=== PATIENT | female | born 1980 | race Caucasian/White ===

== ENCOUNTER → 2019-07-31 | Emergency (ER) | payer BC ==
[~2019-07-31] VITALS: Ht 170.2 cm; Wt 90.7 kg
[~2019-07-31] MED LIST: IOPAMIDOL 370 MG/ML 200 ML INFUS..BTL INJ ONE; ONDANSETRON HCL INJ 2MG/ML 2ML 2 MG/ML VIAL IV STA; SODIUM CHLORIDE 0.9% 1000ML 1,000 ML IV STA; SODIUM CHLORIDE 0.9% 50ML 50 ML ONE
--- OUTSIDE RECORDS SUMMARY | 2019-07-31 12:50 | XMS REPORT ---
Author Author Toni Diez Organization [employer] Address Unknown Phone Unavailable Care Team Providers Care Pad Hand Name Role Phone Toni Diez CP Unavailable Allergies No Known Allergies Problems Problem Type Condition Code Onset Dates Condition Status Problem Hypertrophy of tonsils J35.1 Active Medications Medication Code System Code Instructions Start Date End Date Status Dosage Tylenol #3 [facility] [id number] 300-30 MG Orally every 6 hrs as needed Feb 28, 2018 Mar 10, 2018 Active 1-2 tablets Results No Known Results Summary Purpose [employer] Submission
--- OUTSIDE RECORDS SUMMARY | 2019-07-31 12:50 | XMS REPORT ---
Author Author Toni Diez Organization [employer] Address Unknown Phone Unavailable Care Team Providers Care Steamfitter Name Role Phone Toni Diez CP Unavailable Allergies, Adverse Reactions, Alerts Substance Reaction Event Type N.K.D.A. Info Not Available Non Drug Allergy Problems Problem Type Condition Code Onset Dates Condition Status Assessment Hypertrophy of tonsils J35.1 Active Assessment Nasal airway obstruction J34.89 Active Problem Hypertrophy of tonsils J35.1 Active Assessment Deviated nasal septum J34.2 Active Medications No Known Medications Results No Known Results Summary Purpose [employer] Submission
--- OUTSIDE RECORDS SUMMARY | 2019-07-31 12:50 | XMS REPORT ---
Author Author Toni Diez Organization [employer] Address Unknown Phone Unavailable Care Team Providers Care Leather Fitter Name Role Phone Toni Diez CP Unavailable Allergies No Known Allergies Problems Problem Type Condition Code Onset Dates Condition Status Problem Hypertrophy of tonsils J35.1 Active Medications No Known Medications Results No Known Results Summary Purpose [employer] Submission
--- OUTSIDE RECORDS SUMMARY | 2019-07-31 12:51 | XMS REPORT ---
Author Author Toni Diez Organization [employer] Address Unknown Phone Unavailable Care Team Providers Care Lead Enterprise Architect Name Role Phone Toni Diez CP Unavailable Allergies No Known Allergies Problems Problem Type Condition Code Onset Dates Condition Status Problem Hypertrophy of tonsils J35.1 Active Medications No Known Medications Results No Known Results Summary Purpose [employer] Submission
--- OUTSIDE RECORDS SUMMARY | 2019-07-31 12:51 | XMS REPORT ---
Author Author [facility] Address Unknown Phone Unavailable Care Team Providers Care Cold Rolling Coordinator Name Role Phone Trinity PIERSON Unavailable Unavailable Problems This patient has no known problems. Allergies, Adverse Reactions, Alerts This patient has no known allergies or adverse reactions. Medications This patient has no known medications. Results Test Description Test Time Test Comments Text Results Atomic Results Result Comments CBC W/PLT COUNT & AUTO DIFFERENTIAL 2018-02-14 14:45:00 WHITE BLOOD CELL COUNT (BEAKER) (test duok=916) 7.5 K/ L 3.5-10.5 RED BLOOD CELL COUNT (BEAKER) (test nxxw=304) 4.73 M/ L 3.93-5.22 HEMOGLOBIN (BEAKER) (test yudd=478) 10.8 GM/DL 11.2-15.7 HEMATOCRIT (BEAKER) (test wfkj=227) 35.5 % 34.1-44.9 MEAN CORPUSCULAR VOLUME (BEAKER) (test umwn=115) 75.1 fL 79.4-94.8 MEAN CORPUSCULAR HEMOGLOBIN (BEAKER) (test nmee=540) 22.8 pg 25.6-32.2 MEAN CORPUSCULAR HEMOGLOBIN CONC (BEAKER) (test lajg=871) 30.4 GM/DL 32.2-35.5 RED CELL DISTRIBUTION WIDTH (BEAKER) (test iibx=441) 16.0 % 11.7-14.4 PLATELET COUNT (BEAKER) (test clrs=181) 375 K/CU MM 150-450 MEAN PLATELET VOLUME (BEAKER) (test tdwl=228) 9.3 fL 9.4-12.3 NUCLEATED RED BLOOD CELLS (BEAKER) (test gwka=819) 0 /100 WBC 0-0 NEUTROPHILS RELATIVE PERCENT (BEAKER) (test zalv=088) 60 % LYMPHOCYTES RELATIVE PERCENT (BEAKER) (test yjqz=900) 31 % MONOCYTES RELATIVE PERCENT (BEAKER) (test kxdw=966) 6 % EOSINOPHILS RELATIVE PERCENT (BEAKER) (test oqrb=055) 2 % BASOPHILS RELATIVE PERCENT (BEAKER) (test qmaf=453) 1 % NEUTROPHILS ABSOLUTE COUNT (BEAKER) (test abqh=932) 4.51 K/ L 1.56-6.13 LYMPHOCYTES ABSOLUTE COUNT (BEAKER) (test jrfe=799) 2.34 K/ L 1.18-3.74 MONOCYTES ABSOLUTE COUNT (BEAKER) (test jdhs=245) 0.45 K/ L 0.24-0.36 EOSINOPHILS ABSOLUTE COUNT (BEAKER) (test ymms=731) 0.14 K/ L 0.04-0.36 BASOPHILS ABSOLUTE COUNT (BEAKER) (test nlel=408) 0.04 K/ L 0.01-0.08 IMMATURE GRANULOCYTES-RELATIVE PERCENT (BEAKER) (test rwbp=8741) 0 % 0-1 PT/[id number] 14:32:00* Test Item Value Reference Range Comments PROTIME (BEAKER) (test azji=192) 14.1 seconds 11.7-14.7 INR (BEAKER) (test iqad=932) 1.1 <=5.9 PARTIAL THROMBOPLASTIN TIME (BEAKER) (test omos=470) 31.1 seconds 22.5-36.0 RECOMMENDED COUMADIN/WARFARIN INR THERAPY RANGESSTANDARD DOSE: 2.0 - 3.0 Inclu leanna: PROPHYLAXIS for venous thrombosis, systemic embolization; TREATMENT for robyn ous thrombosis and/or pulmonary embolus.HIGH RISK: Target INR is 2.5-3.5 for pat ients with mechanical heart valves.
--- OUTSIDE RECORDS SUMMARY | 2019-07-31 12:51 | XMS REPORT ---
Author Author Toni Diez Organization [employer] Address Unknown Phone Unavailable Care Team Providers Care Driver Medic Name Role Phone Toni Diez CP Unavailable Allergies No Known Allergies Problems Problem Type Condition Code Onset Dates Condition Status Problem Hypertrophy of tonsils J35.1 Active Medications No Known Medications Results No Known Results Summary Purpose [employer] Submission
--- OUTSIDE RECORDS SUMMARY | 2019-07-31 12:51 | XMS REPORT ---
Author Author Toni Diez Organization [employer] Address Unknown Phone Unavailable Care Team Providers Care Food Trades Assistants Name Role Phone Toni Diez CP Unavailable Allergies, Adverse Reactions, Alerts Substance Reaction Event Type N.K.D.A. Info Not Available Non Drug Allergy Problems Problem Type Condition Code Onset Dates Condition Status Assessment Hypertrophy of tonsils J35.1 Active Problem Hypertrophy of tonsils J35.1 Active Medications Medication Code System Code Instructions Start Date End Date Status Dosage Tylenol #3 [facility] [id number] 300-30 MG Orally every 6 hrs as needed Feb 28, 2018 Mar 10, 2018 Active 1-2 tablets Tylenol with Codeine Solution ND [id number] 120-12 MG/5ML Orally every 4 hrs Mar 07, 2018 Active 15 cc Results No Known Results Summary Purpose [employer] Submission
[2019-07-31 14:11] LABS: BASOPHILS % 0.6 % (0.0-1.0); EOSINOPHILS # (AUTO) 0.2 (0.0-0.4); EOSINOPHILS % 2.7 % (0.0-6.0); HEMATOCRIT 39.3 % (34.2-44.1); HEMOGLOBIN 12.7 g/dL (12.0-16.0); LYMPHOCYTES # (AUTO) 2.6 (1.0-3.2); LYMPHOCYTES % 36.5 % (18.0-39.1); MEAN CORPUSCULAR HEMOGLOBIN 26.1 pg (28-32); MEAN CORPUSCULAR HGB CONC 32.3 g/dL (31-35); MEAN CORPUSCULAR VOLUME 80.7 fL (81-99); MONOCYTES # (AUTO) 0.5 (0.2-0.8); MONOCYTES % 7.5 % (4.4-11.3); NEUTROPHILS # (AUTO) 3.7 (2.1-6.9); NEUTROPHILS % 52.4 % (38.7-80.0); PLATELET COUNT 344 x10e3/uL (140-360); RED BLOOD COUNT 4.87 x10e6/uL (3.6-5.1); RED CELL DISTRIBUTION WIDTH 14.7 % (11.7-14.4)
[2019-07-31 14:28] LABS: ALANINE AMINOTRANSFERASE 13 IU/L (0-55); ALBUMIN 3.8 g/dL (3.5-5.0); ALKALINE PHOSPHATASE 54 IU/L (40-150); ANION GAP 12.6 mmol/L (8-16); BLOOD UREA NITROGEN 9 mg/dL (7-26); BUN/CREATININE RATIO 12 (6-25); CALCIUM 9.2 mg/dL (8.4-10.2); CARBON DIOXIDE 24 mmol/L (22-29); CHLORIDE 102 mmol/L (98-107); CREATININE, SERUM 0.78 mg/dL (0.57-1.11); EST GLOMERULAR FILTRATION RATE > 60 ML/MIN (60-); GLUCOSE 80 mg/dL (74-118); POTASSIUM 3.6 mmol/L (3.5-5.1); SODIUM 135 mmol/L (136-145)
[2019-07-31 14:57] LABS: BILIRUBIN,URINE NEGATIVE (NEGATIVE); CLARITY,URINE SL CLOUDY (CLEAR); COLOR,URINE YELLOW (YELLOW); KETONES,URINE NEGATIVE (NEGATIVE); LEUKOCYTE ESTERASE ,URINE 1+ (NEGATIVE); NITRITE,URINE NEGATIVE (NEGATIVE); PREGNANCY TEST, URINE NEGATIVE (NEGATIVE); PROTEIN,URINE DIPSTICK NEGATIVE (NEGATIVE); URINE UROBILINOGEN 0.2 mg/dL (0.2 - 1)
[2019-07-31 15:13] LABS: BACTERIA,URINE FEW /HPF; EPITHELIAL CELLS,URINE FEW /LPF
--- NOTE | 2019-07-31 15:34 | NUR ---
Recieved 39y/o female in rm 9 with c/o LLQ pain for last few days. Patient reports she has been experiencing nausea. Patient reports 20lb weight loss in last few months, and has chronic diarrhea.
--- NOTE | 2019-07-31 15:58 | NUR ---
Pt currently in CT scan.
--- NOTE | 2019-07-31 16:21 | NUR ---
Patient returned from CT scan.
--- NOTE | 2019-07-31 16:50 | Diagnostic Imaging Report ---
TECHNIQUE: CT of the abdomen and pelvis WITH intravenous contrast and WITHOUT oral contrast. Dose modulation, iterative reconstruction, and/or weight-based adjustment of the mA/kV was utilized to reduce the radiation dose to as low as reasonably achievable. INDICATION: 39-year-old woman with right lower abdominal pain. COMPARISON: None. FINDINGS: LOWER THORAX: Mild atelectasis in both lung bases. HEPATOBILIARY: No focal hepatic lesions. Prior cholecystectomy. No biliary ductal dilatation. SPLEEN: No splenomegaly. 1.8 x 2.2 cm hypodense lesion in the spleen. PANCREAS: No focal masses or ductal dilatation. ADRENALS: No adrenal nodules. KIDNEYS/URETERS: No hydronephrosis, stones, or solid mass lesions. PELVIC ORGANS/BLADDER: Unremarkable. PERITONEUM/RETROPERITONEUM: Trace fluid in the pelvis, likely physiologic. No free air. LYMPH NODES: No lymphadenopathy. VESSELS: Unremarkable. GI TRACT: No distention or wall thickening. Normal appendix. BONES AND SOFT TISSUES: Unremarkable. IMPRESSION: No acute abnormalities in the abdomen or pelvis. Hypodense lesion in the spleen is almost certainly benign in the absence of a history of malignancy, but is incompletely characterized on this exam. Nonemergent abdomen MRI with and without intravenous contrast may be obtained for further characterization. Signed by: Talib Dash MD on 07/31/2019 4:47 PM
[2019-07-31 17:04] VITALS: BP 126/82
== END | disposition home or self-care (01) ==
LOC: ER 12:46
DX: R10.31 Right lower quadrant pain (principal); N30.91 Cystitis, unspecified with hematuria
CPT/HCPCS: 36415; 74177; 80053; 81001; 81025; 85025; 99284; J2405; J7030; Q9967

== ENCOUNTER 2021-11-05 05:38 | Emergency (ER) | payer BC, OTHER ==
[~2021-11-05] VITALS: Ht 170.2 cm; Wt 108.9 kg
[2021-11-05] MEDS ORDERED: ONDANSETRON HCL INJ 2MG/ML 2ML 2 MG/ML VIAL IV STA (06:08)
[2021-11-05] MEDS ORDERED: Morphine 4mg Syringe 4 MG/ML INJ IV STA (06:08)
[2021-11-05] MEDS ORDERED: SODIUM CHLORIDE 0.9% 1000ML 1,000 ML IV STA (06:08)
[2021-11-05 06:27] LABS: BASOPHILS % 0.3 % (0.0-1.0); EOSINOPHILS # (AUTO) 0.1 (0.0-0.4); EOSINOPHILS % 1.7 % (0.0-6.0); HEMOGLOBIN 13.3 g/dL (12.0-16.0); LYMPHOCYTES # (AUTO) 1.4 (1.0-3.2); LYMPHOCYTES % 23.8 % (18.0-39.1); MEAN CORPUSCULAR HEMOGLOBIN 25.8 pg (28-32); MEAN CORPUSCULAR HGB CONC 31.7 g/dL (31-35); MEAN CORPUSCULAR VOLUME 81.6 fL (81-99); MONOCYTES # (AUTO) 0.7 (0.2-0.8); MONOCYTES % 12.6 % (4.4-11.3); NEUTROPHILS # (AUTO) 3.6 (2.1-6.9); NEUTROPHILS % 61.3 % (38.7-80.0); PLATELET COUNT 337 x10e3/uL (140-360); RED BLOOD COUNT 5.15 x10e6/uL (3.6-5.1); RED CELL DISTRIBUTION WIDTH 14.8 % (11.7-14.4)
[2021-11-05 06:43] LABS: ALANINE AMINOTRANSFERASE 18 IU/L (0-55); ALBUMIN 3.6 g/dL (3.5-5.0); ALBUMIN/GLOBULIN RATIO 0.8 (0.8-2.0); ALKALINE PHOSPHATASE 62 IU/L (40-150); ANION GAP 17.1 mmol/L (8-16); BLOOD UREA NITROGEN 13 mg/dL (7-26); BUN/CREATININE RATIO 16 (6-25); CALCIUM 8.3 mg/dL (8.4-10.2); CARBON DIOXIDE 21 mmol/L (22-29); CHLORIDE 103 mmol/L (98-107); CREATINE KINASE 56 IU/L (29-168); CREATININE, SERUM 0.83 mg/dL (0.57-1.11); GLUCOSE 101 mg/dL (74-118); MAGNESIUM 1.7 MG/DL (1.3-2.1); POTASSIUM 3.1 mmol/L (3.5-5.1); SODIUM 138 mmol/L (136-145)
[2021-11-05 06:48] LABS: CLARITY,URINE SL CLOUDY (CLEAR); COLOR,URINE YELLOW (YELLOW); LEUKOCYTE ESTERASE ,URINE NEGATIVE (NEGATIVE)
[2021-11-05 06:49] LABS: KETONES,URINE NEGATIVE (NEGATIVE); NITRITE,URINE NEGATIVE (NEGATIVE); PROTEIN,URINE DIPSTICK 1+ (NEGATIVE); URINE UROBILINOGEN 0.2 mg/dL (0.2 - 1)
[2021-11-05 07:04] LABS: BACTERIA,URINE MODERATE /HPF; EPITHELIAL CELLS,URINE MODERATE /LPF
[2021-11-05] MEDS ORDERED: IOPAMIDOL 370 MG/ML 100 ML INFUS..BTL INJ ONE (07:13)
[2021-11-05] MEDS ORDERED: DICYCLOMINE HCL 20 MG/2 ML VIAL IM ONE (08:00)
== END 2021-11-05 08:30 | disposition home or self-care (01) ==
LOC: ER 05:53
DX: R10.31 Right lower quadrant pain (principal); D73.9 Disease of spleen, unspecified; Z20.822 Contact with and (suspected) exposure to COVID-19; R94.31 Abnormal electrocardiogram [ECG] [EKG]
CPT/HCPCS: 36415; 74177; 80053; 81001; 82550; 82553; 83735; 84484; 84702; 85025; 87086; 93005; 99284; C9113; J0500; J2270; J2405; J7030; Q9967; U0002